=== PATIENT | male | born 1990 | race Caucasian/White ===

== ENCOUNTER 2017-06-05 09:53 | Emergency (ER) | payer SELFPAY ==
[~2017-06-05 09:53] MED LIST: AMT50 PO; ONDA4TAB10 SL
[2017-06-05] MEDS ORDERED: ONDANSETRON INJ 2 MG/ML 2 ML VIAL IV STA ×2 (10:07→11:10)
[2017-06-05] MEDS ORDERED: MoRPHine SULFATE 10 MG/ML CARP/VIAL IV STA (10:07)
[2017-06-05] MEDS ORDERED: SODIUM CHLORIDE 0.9% 1000ML 2,000 ML IV STA (10:07)
[2017-06-05] MEDS ORDERED: OPTIRAY 320 IV PRN (10:30)
[2017-06-05] MEDS ORDERED: HYDROmorphone INJ 1 MG/ML SYR IV STA (10:44)
[2017-06-05 10:47] LABS: HEMATOCRIT 42.1 % (42-52); HEMOGLOBIN 15.3 g/dL (14.0-18.0); MEAN CELL VOLUME 87.5 fL (80-100); MEAN CORPUSCULAR HEMOGLOBIN 31.8 pg (25-34); MEAN CORPUSCULAR HGB CONC 36.3 g/dl (32-36); MEAN PLATELET VOLUME 9.9 fL (7.4-10.4); PLATELET COUNT 289 K/uL (130-400); RED CELL DISTRIBUTION WIDTH CV 12.6 % (11.5-14.5); RED CELL DISTRIBUTION WIDTH SD 40.5 fL (36.4-46.3); WHITE BLOOD COUNT 15.69 K/uL (4.8-10.8)
[2017-06-05] MEDS ORDERED: AMT100 PO (10:47)
[2017-06-05 11:03] LABS: ALBUMIN 4.3 gm/dl (3.4-5.0); BLOOD UREA NITROGEN 20 mg/dl (7-18); CALCIUM 9.3 mg/dl (8.5-10.1); CARBON DIOXIDE 21 mmol/L (21-32); CREATININE 1.29 mg/dl (0.60-1.40); GLUCOSE 102 mg/dl (70-99); LIPASE 156 U/L (73-393); SODIUM 138 mmol/L (136-145)
[2017-06-05 11:08] LABS: ALKALINE PHOSPHATASE 88 U/L (45-117); ALT/SGPT 21 U/L (12-78); AST/SGOT 18 U/L (15-37); TOTAL PROTEIN 8.4 gm/dl (6.4-8.2)
--- NOTE | 2017-06-05 11:39 | DIAGNOSTIC IMAGING REPORT ---
CT SCAN OF THE ABDOMEN AND PELVIS WITH IV CONTRAST CLINICAL HISTORY: Left lower quadrant abdominal pain. COMPARISON STUDY: Abdominal CT dated 02/03/2015. TECHNIQUE: Following the IV administration of 94 cc of Optiray 320, CT scan of the abdomen and pelvis is performed from the lung bases to the proximal femora. Images are reviewed in the axial, sagittal, and coronal planes. IV contrast was administered without complication. A dose lowering technique was utilized adhering to the principles of ALARA. CT DOSE: 308.21 mGy.cm FINDINGS: Lung bases: The heart is normal in size and without pericardial effusion. The lung bases are clear noting dependent atelectasis. Liver: The contrast-enhanced liver is normal in size, contour, and attenuation. There is no intrahepatic biliary ductal dilatation. The hepatic veins and portal veins are patent. Gallbladder: Unremarkable. Spleen: Normal in size and attenuation. Pancreas: Unremarkable. Adrenal glands: Unremarkable. Kidneys: The contrast enhanced kidneys are normal in size and without hydronephrosis. The kidneys enhance symmetrically. Abdominal vasculature: The abdominal aorta is normal in course and caliber. Bowel: The small bowel and colon are normal in course and caliber. The appendix is well-visualized and normal. Peritoneum: There is no intraperitoneal free air or abdominal ascites. There is a small fat-containing umbilical hernia. Lymphadenopathy: None. Pelvic viscera: The bladder, prostate, and seminal vesicles are normal as visualized. Skeletal structures: No lytic or blastic lesions are seen. IMPRESSION: There are no acute infectious or inflammatory findings in the abdomen or pelvis. Electronically signed by: Tuan Flood M.D. 06/05/2017 11:37 AM Dictated Date/Time: 06/05/2017 11:32 AM
[2017-06-05 12:51] VITALS: BP 119/91; PULSE 78; TEMP 36.5; O2SAT 98
--- NOTE | 2017-06-05 14:46 | EMERGENCY ROOM VISIT NOTE ---
History Report prepared by Sigifredo: Payam Paulino Under the Supervision of: Dr. Duarte Garcia D.O. First contact with patient: 10:00 Chief Complaint: ABDOMINAL PAIN Stated Complaint: ABD PAIN History of Present Illness The patient is a 26 year old male who presents to the Emergency Room with complaints of stabbing LLQ abdominal pain that began about 4 hours ago. He rates his pain an 8/10 in severity. He has a past medical history of Crohn's disease and notes that he has not had a flare for the past 3 years. He has not been following up with a physician secondary to him not having insurance. Earlier this morning, the patient began to have this abdominal pain with associated nausea, vomiting, and diarrhea. He has vomited three times and has been having a bowel movement every 20 minutes over this time period. He states that curling up in a ball makes his pain mildly better. Pt denies headache, change in vision, fevers, chest pain, shortness of breath, pain with urination, hematochezia, melena, testicular swelling, or testicular pain. He denies any previous surgeries. Source of History: patient Onset: 4 hours ago Position: abdomen (LLQ) Symptom Intensity: 8/10 Quality: stabbing Timing: constant Associated Symptoms: + nausea, + vomiting, + diarrhea, No fevers, No headache, No chest pain, No SOB, No melena, No hematochezia, No urinary symptoms Note: He denies any testicular pain or swelling. Review of Systems See HPI for pertinent positives & negatives. A total of 10 systems reviewed and were otherwise negative. Past Medical & Surgical Medical Problems: (1) Asthma (2) Bronchitis (3) Crohn's disease (4) Large prostate Family History Cancer Diabetes mellitus Heart disease Hypertension Kidney disease Kidney stones Lung disease Seizures Social History Smoking Status: Current Every Day Smoker Alcohol Use: occasionally Drug Use: none Marital Status: Housing Status: lives with significant other Occupation Status: unemployed Current/Historical Medications Scheduled Amitriptyline HCl (Amitriptyline HCl), 100 MG PO DAILY Scheduled PRN Ondasetron Odt (Zofran Odt), 4 MG SL TID PRN for Nausea Allergies Coded Allergies: Amoxicillin (Verified Allergy, Severe, THROAT SWELLING, 06/05/17) RECENTLY TOOK THIS WITH NO ADVERSE REACTION Dicyclomine (Unverified Allergy, Severe, hives, 06/05/17) Tomato (Verified Allergy, Severe, BLISTERS, 06/05/17) Aspirin (Verified Allergy, Intermediate, throat swelling, 06/05/17) Mesalamine (Verified Allergy, Intermediate, GI SYMPTOMS, 06/05/17) Ciprofloxacin (Verified Allergy, Mild, ., 06/05/17) BEE STING (Verified Allergy, Unknown, ANAPHYLAXIS, 06/05/17) Cat Dander (Verified Allergy, Unknown, SNEEZING AND ITCHY WATERY EYES, ) Quinolones (Verified Adverse Reaction, Intermediate, THRUSH, 06/05/17) Sulfamethoxazole w/Trimethoprim (Verified Adverse Reaction, Intermediate, THRUSH, 06/05/17) Promethazine (Verified Adverse Reaction, Unknown, BAD FEELING IN LEGS, STABBING FEELING, 06/05/17) Physical Exam Vital Signs Date Time Temp Pulse Resp B/P (MAP) Pulse Ox O2 Delivery O2 Flow Rate FiO2 06/05/17 12:51 36.5 78 20 119/91 98 06/05/17 11:32 79 20 130/73 98 06/05/17 09:56 110 20 121/68 98 Room Air Physical Exam GENERAL: Sitting up in bed holding his LLQ, alert, well appearing, well nourished, mild distress, non-toxic EYE EXAM: normal conjunctiva. PERRL and EOMI's grossly intact. OROPHARYNX: no exudate, no erythema, lips, buccal mucosa, and tongue normal and mucous membranes are moist NECK: supple, no nuchal rigidity, no adenopathy, non-tender LUNGS: Clear to auscultation. Normal chest wall mechanics HEART: no murmurs, S1 normal and S2 normal ABDOMEN: abdomen soft, tenderness to palpation of the left side, normo-active bowel sounds, no masses, no rebound or guarding. BACK: Back is symmetrical on inspection and there is no deformity, no midline tenderness, no CVA tenderness. SKIN: no rashes and no bruising UPPER EXTREMITIES: upper extremities are grossly normal. LOWER EXTREMITIES: No pitting edema. NEURO EXAM: Normal sensorium, cranial nerves II-XII grossly intact, normal speech, no gross weakness of arms, no gross weakness of legs. Medical Decision & Procedures ER Provider Diagnostic Interpretation: Radiology results as stated below per my review and the radiologist's interpretation: CT SCAN OF THE ABDOMEN AND PELVIS WITH IV CONTRAST CLINICAL HISTORY: Left lower quadrant abdominal pain. COMPARISON STUDY: Abdominal CT dated 02/03/2015. TECHNIQUE: Following the IV administration of 94 cc of Optiray 320, CT scan of the abdomen and pelvis is performed from the lung bases to the proximal femora. Images are reviewed in the axial, sagittal, and coronal planes. IV contrast was administered without complication. A dose lowering technique was utilized adhering to the principles of ALARA. CT DOSE: 308.21 mGy.cm FINDINGS: Lung bases: The heart is normal in size and without pericardial effusion. The lung bases are clear noting dependent atelectasis. Liver: The contrast-enhanced liver is normal in size, contour, and attenuation. There is no intrahepatic biliary ductal dilatation. The hepatic veins and portal veins are patent. Gallbladder: Unremarkable. Spleen: Normal in size and attenuation. Pancreas: Unremarkable. Adrenal glands: Unremarkable. Kidneys: The contrast enhanced kidneys are normal in size and without hydronephrosis. The kidneys enhance symmetrically. Abdominal vasculature: The abdominal aorta is normal in course and caliber. Bowel: The small bowel and colon are normal in course and caliber. The appendix is well-visualized and normal. Peritoneum: There is no intraperitoneal free air or abdominal ascites. There is a small fat-containing umbilical hernia. Lymphadenopathy: None. Pelvic viscera: The bladder, prostate, and seminal vesicles are normal as visualized. Skeletal structures: No lytic or blastic lesions are seen. IMPRESSION: There are no acute infectious or inflammatory findings in the abdomen or pelvis. Electronically signed by: Tuan Flood M.D. 06/05/2017 11:37 AM Dictated Date/Time: 06/05/2017 11:32 AM Laboratory Results 06/05/17 10:30 Red Blood Count 4.81, Mean Corpuscular Volume 87.5, Mean Corpuscular Hemoglobin 31.8, Mean Corpuscular Hemoglobin Concent 36.3, Mean Platelet Volume 9.9 06/05/17 10:30 Test 06/05/17 10:30 06/05/17 10:38 White Blood Count 15.69 K/uL (4.8-10.8) Red Blood Count 4.81 M/uL (4.7-6.1) Hemoglobin 15.3 g/dL (14.0-18.0) Hematocrit 42.1 % (42-52) Mean Corpuscular Volume 87.5 fL (80-100) Mean Corpuscular Hemoglobin 31.8 pg (25-34) Mean Corpuscular Hemoglobin Concent 36.3 g/dl (32-36) Platelet Count 289 K/uL (130-400) Mean Platelet Volume 9.9 fL (7.4-10.4) RDW Standard Deviation 40.5 fL (36.4-46.3) RDW Coefficient of Variation 12.6 % (11.5-14.5) Neutrophils % (Manual) 52.2 % Lymphocytes % (Manual) 10.4 % Variant Lymphocytes % (manual) 22.6 % Monocytes % (Manual) 7.0 % Eosinophils % (Manual) 7.8 % Neutrophils # (Manual) 8.19 K/uL (1.4-6.5) Total Absolute Neutrophils 8.19 K/uL (1.4-6.5) Lymphocytes # (Manual) 1.63 K/uL (1.2-3.4) Absolute Variant Lymphocytes 3.55 K/uL Total Absolute Lymphocytes 5.18 K/uL (1.2-3.4) Monocytes # (Manual) 1.10 K/uL (0.11-0.59) Eosinophils # (Manual) 1.22 K/uL (0-0.5) Anion Gap 12.0 mmol/L (3-11) Estimated GFR () 87.5 Estimated GFR (Non- 75.5 BUN/Creatinine Ratio 15.7 (10-20) Calcium Level 9.3 mg/dl (8.5-10.1) Total Bilirubin 0.5 mg/dl (0.2-1) Direct Bilirubin < 0.1 mg/dl (0-0.2) Aspartate Amino Transf (AST/SGOT) 18 U/L (15-37) Alanine Aminotransferase (ALT/SGPT) 21 U/L (12-78) Alkaline Phosphatase 88 U/L (45-117) Total Protein 8.4 gm/dl (6.4-8.2) Albumin 4.3 gm/dl (3.4-5.0) Lipase 156 U/L (73-393) Urine Color YELLOW Urine Appearance CLEAR (CLEAR) Urine pH 5.5 (4.5-7.5) Urine Specific [place] 1.012 (1.000-1.030) Urine Protein NEG (NEG) Urine Glucose (UA) NEG (NEG) Urine Ketones NEG (NEG) Urine Occult Blood NEG (NEG) Urine Nitrite NEG (NEG) Urine Bilirubin NEG (NEG) Urine Urobilinogen NEG (NEG) Urine Leukocyte Esterase NEG (NEG) Urine WBC (Auto) 1-5 /hpf (0-5) Urine RBC (Auto) 0-4 /hpf (0-4) Urine Hyaline Casts (Auto) 1-5 /lpf (0-5) Urine Epithelial Cells (Auto) 5-10 /lpf (0-5) Urine Bacteria (Auto) NEG (NEG) Laboratory results per my review. Medications Administered Medications (Trade) Dose Ordered Sig/[place] Route Start Time Stop Time Status Last Admin Dose Admin Sodium Chloride 2,000 ml @ 999 mls/hr Q2H1M STAT IV 06/05/17 10:07 06/05/17 12:07 DC 06/05/17 10:07 999 MLS/HR Ondansetron HCl (Zofran Inj) 4 mg NOW STAT IV 06/05/17 10:07 06/05/17 10:09 DC 06/05/17 10:29 4 MG Morphine Sulfate (MoRPHine SULFATE INJ) 6 mg NOW STAT IV 06/05/17 10:07 06/05/17 10:09 DC 06/05/17 10:28 6 MG Hydromorphone HCl (Dilaudid Inj) 1 mg NOW STAT IV 06/05/17 10:44 06/05/17 10:45 DC 06/05/17 10:50 1 MG Ondansetron HCl (Zofran Inj) 4 mg NOW STAT IV 06/05/17 11:10 06/05/17 11:11 DC 06/05/17 11:17 4 MG ED Course ED COURSE: Vital signs were reviewed and showed tachycardia The patients medical record was reviewed The above diagnostic studies were performed and reviewed. ED treatments and interventions as stated above. 1000: The patient was evaluated in room B5. A complete history and physical examination was performed. 1007: Ordered Morphine Sulfate 6 mg IV, Zofran Inj 4 mg IV, Sodium Chloride 2000 ml @ 999 mls/hr IV 1044: Ordered Dilaudid Inj 1 mg IV 1110: Ordered Zofran Inj 4 mg IV 1154: I updated the patient at this time. He is feeling better. 1250: Upon reevaluation, the patient is resting.I discussed my findings with the patient and he understands and agrees with the treatment plan. Based on the patients age, coexisting illnesses, exam and lab findings the decision to treat as an outpatient was made. The patient remained stable while under my care. The patient appeared well at the time of discharge. Medical Decision Differential diagnoses includes but is not limited to gastritis, peptic ulcer disease, GERD, gallbladder disease, pancreatitis, small bowel obstruction, acute coronary syndrome, pericarditis, ischemic bowel, irritable bowel disease, irritable bowel syndrome, appendicitis, diverticulitis, malignancy, hernia, urinary tract infection, torsion, perforation, trauma, infectious. Patient is a 26-year-old male who presents the ER for left lower quadrant abdominal pain which started around 6 AM this morning associated with vomiting diarrhea. He has a remote history of inflammatory bowel disease. Has not followed with GI for the past 2-3 years as he has been asymptomatic. Abdominal exam shows no signs of peritonitis but was slightly tender in the left abdomen. Leukocytosis of 15,000. BMP, LFTs, bilirubin lipase is unremarkable. UA was negative. Patient was given several doses of IV narcotics. He did feel significantly better. Was given fluids as well. 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 Discussed with Pt concerning signs and symptoms to watch out for. Pt was instructed to follow up with their PCP and discussed with the patient their option to return to the ED at anytime for persistent or worsening symptoms. The appropriate anticipatory guidance and out-patient management, including indications for return to the emergency department, were explained at length to the patient and understood. Medication Reconcilliation Current Medication List: was personally reviewed by me Blood Pressure Screening Patient's blood pressure: Normal blood pressure Blood pressure disposition: Did not require urgent referral Impression Primary Impression: Abdominal pain Additional Impression: Leukocytosis Scribe Attestation The scribe's documentation has been prepared under my direction and personally reviewed by me in its entirety. I confirm that the note above accurately reflects all work, treatment, procedures, and medical decision making performed by me. Departure Information Dispostion Home / Self-Care Referrals No Doctor, Assigned (PCP) Forms HOME CARE DOCUMENTATION FORM, IMPORTANT VISIT INFORMATION Patient Instructions Abdominal Pain - [facility], [facility] Additional Instructions Please follow up with your primary care doctor with in the next 24 hours. Any worsening of your symptoms, please return to the ED immediately. This includes any fevers greater than 100.4, worsening pain, chest pain, shortness breath, persistent nausea, vomiting, unable to eat or drink, or any other concerning signs or symptoms from your standpoint. You were given medications during this visit that will inhibit your ability to drive, operate machinery and work. Please do NOT drive, operate machinery, drink alcohol or work for the next 12hrs. Problem Qualifiers Primary Impression: Abdominal pain Abdominal location: left lower quadrant Qualified Codes: R10.32 - Left lower quadrant pain Additional Impression: Leukocytosis Leukocytosis type: unspecified Qualified Codes: D72.829 - Elevated white blood cell count, unspecified
== END 2017-06-05 13:00 | disposition home or self-care (01) ==
LOC: C.EDB 09:55
DX: R10.32 Left lower quadrant pain (principal); D72.829 Elevated white blood cell count, unspecified; K50.90 Crohn's disease, unspecified, without complications; R11.2 Nausea with vomiting, unspecified; R19.7 Diarrhea, unspecified; J45.909 Unspecified asthma, uncomplicated; F17.200 Nicotine dependence, unspecified, uncomplicated; Z83.3 Family history of diabetes mellitus; Z82.49 Family history of ischemic heart disease and other diseases of the circulatory system; Z82.0 Family history of epilepsy and other diseases of the nervous system